=== PATIENT | female | born 1995 | race Asian ===

== ENCOUNTER 2021-10-11 09:00 | Emergency (ER) | payer BC ==
[~2021-10-11] VITALS: Ht 160 cm; Wt 83.9 kg
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
[2021-10-11] MEDS ORDERED: IBUPROFEN 600 MG TABLET PO ONE (09:30)
[2021-10-11] MEDS ORDERED: ACETAMINOPHEN ES 500 MG TABLET PO ONE (09:30)
[2021-10-11] MEDS ORDERED: ACETAMINOPHEN ES 500 MG TABLET ONE (09:32)
[2021-10-11] MEDS ORDERED: IBUPROFEN 600 MG TABLET ONE (09:33)
--- NOTE | 2021-10-11 09:35 | NUR ---
PT IS WHEELED TO CT SCAN VIA [facility].
[2021-10-11] MEDS ORDERED: IBUP-1957 PO (11:11)
[2021-10-11 11:22] VITALS: BP 129/77
--- NOTE | 2021-10-11 11:22 | NUR ---
Patient discharged to home in stable condition. Written and verbal after care instructions given. Patient verbalizes understanding of instruction.
== END 2021-10-11 11:23 | disposition home or self-care (01) ==
LOC: ER 09:11
DX: S16.1XXA Strain of muscle, fascia and tendon at neck level, initial encounter (principal); S39.012A Strain of muscle, fascia and tendon of lower back, initial encounter; S00.83XA Contusion of other part of head, initial encounter; V49.49XA Driver injured in collision with other motor vehicles in traffic accident, initial encounter; Y93.89 Activity, other specified; Y92.413 State road as the place of occurrence of the external cause; Y99.8 Other external cause status
CPT/HCPCS: 70450-TC; 70486-TC; 72125-TC; 72131-TC